=== PATIENT | male | born 1990 | race Caucasian/White ===

== ENCOUNTER 2018-04-16 11:27 | Emergency (ER) | payer OTHER ==
[~2018-04-16] VITALS: Ht 172.7 cm; Wt 113.4 kg
[~2018-04-16 11:27] MED LIST: ATARAX25 MG PO; AUGMENTIN 875 M1 TAB PO; HYDROCODONE BIT1 T11 PO; MOTRIN800 MG PO; PREDNICOT20 MG PO; VICODIN 500 MG-1 TAB PO
[2018-04-16] MEDS ORDERED: NORCO 5-325 TA1 EACH PO (12:34)
== END 2018-04-16 12:50 | disposition home or self-care (01) ==
LOC: ED 11:27
DX: S62.337A Displaced fracture of neck of fifth metacarpal bone, left hand, initial encounter for closed fracture (principal); S62.317A Displaced fracture of base of fifth metacarpal bone, left hand, initial encounter for closed fracture; S62.315A Displaced fracture of base of fourth metacarpal bone, left hand, initial encounter for closed fracture; R03.0 Elevated blood-pressure reading, without diagnosis of hypertension; J45.909 Unspecified asthma, uncomplicated; Z79.899 Other long term (current) drug therapy; W22.8XXA Striking against or struck by other objects, initial encounter; Y93.89 Activity, other specified; Y92.89 Other specified places as the place of occurrence of the external cause; Y99.8 Other external cause status

== ENCOUNTER 2022-01-23 15:13 | Emergency (ER) | payer OTHER, BC ==
[~2022-01-23] VITALS: Wt 113.4 kg
[~2022-01-23 15:13] MED LIST changes: +NORCO 5-325 TA1 EACH PO
[2022-01-23] MEDS ORDERED: CEPHALEXIN500 M1 PO (16:44)
[2022-01-23] MEDS ORDERED: MEDROL DOSEPAK4 MG PO (16:44)
== END 2022-01-23 16:49 | disposition home or self-care (01) ==
LOC: ED 15:13
DX: S50.01XA Contusion of right elbow, initial encounter (principal); Z79.899 Other long term (current) drug therapy; Z88.6 Allergy status to analgesic agent; W22.8XXA Striking against or struck by other objects, initial encounter; Y93.01 Activity, walking, marching and hiking; Y92.69 Other specified industrial and construction area as the place of occurrence of the external cause; Y99.9 Unspecified external cause status

== ENCOUNTER 2023-07-01 01:02 | Emergency (ER) | payer BC ==
[~2023-07-01] VITALS: Ht 172.7 cm; Wt 117.9 kg
[~2023-07-01 01:02] MED LIST changes: +CEPHALEXIN500 M1 PO; +MEDROL DOSEPAK4 MG PO
[2023-07-01] MEDS ORDERED: SEPTDS PO (04:21)
[2023-07-01] MEDS ORDERED: HYDROCODONE-AC1 EAC1 PO (04:21)
== END 2023-07-01 04:52 | disposition home or self-care (01) ==
LOC: ED 01:02
DX: S62.631B Displaced fracture of distal phalanx of left index finger, initial encounter for open fracture (principal); Z88.6 Allergy status to analgesic agent; W27.0XXA Contact with workbench tool, initial encounter; Y93.89 Activity, other specified; Y92.009 Unspecified place in unspecified non-institutional (private) residence as the place of occurrence of the external cause; Y99.8 Other external cause status